=== PATIENT | male | born 1945 | race Caucasian/White ===

== ENCOUNTER 2022-11-29 10:41 | Inpatient (IN) | payer OTHER ==
[~2022-11-29] VITALS: Ht 185.4 cm; Wt 144.7 kg
[2022-11-29 10:46] VITALS: BP 130/96; PULSE 103; RESP 18; TEMP 96.6; O2SAT 97
[2022-11-29] MEDS ORDERED: DEXTROSE 50% 50 ML SYR IVP ONE (11:05)
[2022-11-29] MEDS ORDERED: DEXTROSE 10% 500 ML IV SCH (11:20)
[2022-11-29] MEDS ORDERED: DEXTROSE 10% 1,000 ML IV ONE (11:23)
[2022-11-29 11:40] LABS: HEMATOCRIT 30.4 % (36-52); HEMOGLOBIN 9.6 g/dL (12.0-18.0); MEAN CORPUSCULAR HEMOGLOBIN 24 pg (27-31); MEAN CORPUSCULAR HGB CONC 32 g/dL (33-37); MEAN CORPUSCULAR VOLUME 77.6 fL (80-94); PLATELET COUNT (AUTO) 532 K/uL (140-450); RED BLOOD CELL COUNT(AUTO) 3.92 MIL/uL (4.20-6.10); RED CELL DISTRIBUTION WIDTH 17.1 % (11.6-13.7); WHITE BLOOD COUNT (AUTO) 18.7 K/uL (4.8-10.8)
[2022-11-29 11:53] LABS: INR 1.14 (0.8-1.2); PARTIAL THROMBOPLASTIN TIME 34.5 secs (22-35.6); PROTHROMBIN TIME 11.9 secs (10.8-13.4)
[2022-11-29 12:02] LABS: ALANINE AMINOTRANSFERASE 11 U/L (12-78); ALBUMIN 1.7 g/dL (3.4-5.0); ALKALINE PHOSPHATASE 81 U/L (50-136); ANION GAP 15.4 (8-16); ASPARTATE AMINOTRANSFERASE 21 U/L (15-37); CALCIUM 8.3 mg/dL (8.5-10.1); CARBON DIOXIDE 20.7 mmol/L (21-32); CHLORIDE 99 mmol/L (98-107); CREATININE 2.6 mg/dL (0.6-1.3); GLUCOSE 119 mg/dL (74-106); POTASSIUM 5.1 mmol/L (3.5-5.1); SODIUM SERUM 130 mmol/L (136-145); TOTAL BILIRUBIN 0.1 mg/dL (0.0-1.0); TOTAL PROTEIN, SERUM 6.7 g/dL (6.4-8.2); UREA NITROGEN, BLOOD 39 mg/dL (7-18)
[2022-11-29] MEDS ORDERED: NACL 0.9% 500 ML IV ONE ×2 (12:55→21:50)
[2022-11-29] MEDS ORDERED: cefTRIAXone 1,000 MG VIAL ONE (13:11)
[2022-11-29 13:38] LABS: EOSINOPHILS % (MANUAL) 1 % (0-4); LYMPHOCYTES % (MANUAL) 4 % (20-46); MONOCYTES % (MANUAL) 3 % (5-12)
[2022-11-29 13:47] LABS: BILIRUBIN,URINE NEGATIVE (NEGATIVE); BLOOD, URINE 3+ (NEGATIVE); COLOR,URINE YELLOW (YELLOW); LEUKOCYTE ESTERASE ,URINE 2+ (NEGATIVE); NITRITE, URINE NEGATIVE (NEGATIVE); PROTEIN,URINE 1+ (NEGATIVE); UGLUCOSE NEGATIVE (NEGATIVE); UROBILINOGEN,URINE 0.2 EU/dL (0.2 - 1)
[2022-11-29 13:51] LABS: APPEARANCE,URINE SLIGHTLY HAZY (CLEAR)
[2022-11-29 13:56] LABS: WBC,URINE 60-80 /HPF (0-5)
[2022-11-29 13:57] LABS: BACTERIA,URINE FEW /HPF (None Seen); RBC,URINE 20-50 /HPF (0-5); SQUAMOUS EPITHELIAL CELL,UR 0-3 (FEW) /LPF (0-3 (FEW))
[2022-11-29] MEDS ORDERED: NYST-71 TP (13:58)
[2022-11-29] MEDS ORDERED: APIX5TAB PO (13:58)
[2022-11-29] MEDS ORDERED: INSU100S22 SUBQ (13:58)
[2022-11-29] MEDS ORDERED: METF-352 PO (13:58)
[2022-11-29] MEDS ORDERED: FURO40TA9 PO (13:58)
[2022-11-29] MEDS ORDERED: PANT40EC56 PO (13:58)
[2022-11-29] MEDS ORDERED: SIMV-30 PO (13:58)
[2022-11-29] MEDS ORDERED: METO-748 PO (13:58)
[2022-11-29] MEDS ORDERED: PIOG45TA39 PO (13:58)
[2022-11-29 14:21] LABS: LACTIC ACID 2.1 mmol/L (0.4-2.0)
[2022-11-29] MEDS ORDERED: ONDANSETRON 4 MG/2 ML VIAL IVP PRN (14:30)
[2022-11-29] MEDS ORDERED: MAGNESIUM OXIDE 400 MG TAB PO PRN (14:30)
[2022-11-29] MEDS ORDERED: HYDROcodone/APAP 5/325 MG 1 TAB TAB PO PRN (14:30)
[2022-11-29] MEDS ORDERED: ACETAMINOPHEN 325 MG TAB PO PRN (14:30)
[2022-11-29] MEDS ORDERED: MIDODRINE 5 MG TAB PO SCH (16:00)
[2022-11-29] MEDS: DEXT 5% /NACL 0.9% 1,000 ML IV SCH (16:27)
[2022-11-29 16:30] VITALS: PULSE 104; RESP 16; O2SAT 96
[2022-11-29] MEDS: MIDODRINE 5 MG TAB PO SCH ×2 (16:46→20:29)
[2022-11-29] MEDS: PIPERACILLIN/TAZOBACTAM 2.25 GM in DEXTROSE 5% 50 ML IV SCH (17:11)
[2022-11-29] MEDS ORDERED: ALBUMIN HUMAN 25% 100 ML IV SCH (17:30)
[2022-11-29] MEDS ORDERED: PIPERACILLIN/TAZOBACTAM 2.25 GM in DEXTROSE 5% 50 ML IV SCH (18:00)
[2022-11-29 20:00] VITALS: BP 88/49; PULSE 107; PULSE 111; RESP 18; TEMP 97.3; O2SAT 97
[2022-11-29] MEDS: methylPREDNISolone SS 125 MG/2 ML VIAL IVP SCH (20:29)
[2022-11-30] VITALS (10 sets, daily range): BP systolic 95–120; BP diastolic 50–64; PULSE 76–111; RESP 18–20; TEMP 97.1–98.1; O2SAT 95–99
[2022-11-30] MEDS: PIPERACILLIN/TAZOBACTAM 2.25 GM in DEXTROSE 5% 50 ML IV SCH ×4 (00:13→18:44)
[2022-11-30] MEDS: DEXT 5% /NACL 0.9% 1,000 ML IV SCH ×2 (05:00→07:47)
[2022-11-30] MEDS: methylPREDNISolone SS 125 MG/2 ML VIAL IVP SCH ×3 (05:01→21:28)
[2022-11-30] MEDS: BLOOD GLUCOSE MONITORING 1 DEV DEV FS SCH ×4 (06:58→21:27)
[2022-11-30 07:02] LABS: BASOPHILS % (AUTO) 0.2 % (0.0-2.0); HEMATOCRIT 27.9 % (36-52); HEMOGLOBIN 8.9 g/dL (12.0-18.0); LYMPHOCYTES % (AUTO) 6.3 % (20.5-51.1); MEAN CORPUSCULAR HEMOGLOBIN 24 pg (27-31); MEAN CORPUSCULAR HGB CONC 32 g/dL (33-37); MEAN CORPUSCULAR VOLUME 76.6 fL (80-94); MONOCYTES # (AUTO) 0.2 K/uL (0.8-1.0); NEUTROPHILS # (AUTO) 14.3 K/uL (1.8-7.7); NEUTROPHILS % (AUTO) 92.5 % (42.2-75.2); PLATELET COUNT (AUTO) 525 K/uL (140-450); RED BLOOD CELL COUNT(AUTO) 3.64 MIL/uL (4.20-6.10); RED CELL DISTRIBUTION WIDTH 17.2 % (11.6-13.7); WHITE BLOOD COUNT (AUTO) 15.4 K/uL (4.8-10.8)
[2022-11-30 07:32] LABS: ALANINE AMINOTRANSFERASE 9 U/L (12-78); ALBUMIN 1.9 g/dL (3.4-5.0); ALKALINE PHOSPHATASE 68 U/L (50-136); ANION GAP 15.2 (8-16); ASPARTATE AMINOTRANSFERASE 13 U/L (15-37); CALCIUM 8.4 mg/dL (8.5-10.1); CARBON DIOXIDE 20.5 mmol/L (21-32); CHLORIDE 99 mmol/L (98-107); CREATININE 2.4 mg/dL (0.6-1.3); GLUCOSE 184 mg/dL (74-106); POTASSIUM 5.7 mmol/L (3.5-5.1); SODIUM SERUM 129 mmol/L (136-145); TOTAL BILIRUBIN 0.2 mg/dL (0.0-1.0); TOTAL PROTEIN, SERUM 6.3 g/dL (6.4-8.2); UREA NITROGEN, BLOOD 40 mg/dL (7-18)
[2022-11-30] MEDS: MIDODRINE 5 MG TAB PO SCH ×4 (10:28→21:28)
[2022-11-30] MEDS: PANTOPRAZOLE 40 MG INJ VIAL IVP SCH (10:29)
[2022-11-30] MEDS ORDERED: SODIUM POLYSTYRENE 15 GM/60 ML UDBTL PR ONE (14:20)
[2022-11-30] MEDS ORDERED: FUROSEMIDE 20 MG/2 ML VIAL IVP SCH (14:31)
[2022-11-30] MEDS ORDERED: SODIUM POLYSTYRENE 15 GM/60 ML UDBTL PO SCH (15:20)
[2022-11-30] MEDS: ALBUMIN HUMAN 25% 100 ML IV SCH (15:41)
[2022-11-30] MEDS: INSULIN LISPRO SLIDING SCALE 100 UNITS/ML VIAL SUBQ PRN ×2 (16:04→21:36)
[2022-12-01] VITALS (11 sets, daily range): BP systolic 110–152; BP diastolic 60–79; PULSE 9–107; RESP 17–20; TEMP 96.9–98.2; O2SAT 95–99
[2022-12-01] MEDS: DEXT 5% /NACL 0.9% 1,000 ML IV SCH ×2 (01:06→16:52)
[2022-12-01] MEDS: PIPERACILLIN/TAZOBACTAM 2.25 GM in DEXTROSE 5% 50 ML IV SCH ×5 (01:06→23:54)
[2022-12-01 01:51] LABS: URINE TOTAL PROTEIN 18.9 mg/dL (0-12)
[2022-12-01 01:52] LABS: URINE TPRO CREAT RATIO 0.8 (0-0.20)
[2022-12-01] MEDS: ALBUMIN HUMAN 25% 100 ML IV SCH (04:08)
[2022-12-01] MEDS: methylPREDNISolone SS 125 MG/2 ML VIAL IVP SCH ×2 (05:47→12:26)
[2022-12-01] MEDS: BLOOD GLUCOSE MONITORING 1 DEV DEV FS SCH ×4 (06:31→20:48)
[2022-12-01] MEDS: INSULIN LISPRO SLIDING SCALE 100 UNITS/ML VIAL SUBQ PRN ×4 (06:39→20:39)
[2022-12-01 06:44] LABS: ALANINE AMINOTRANSFERASE 11 U/L (12-78); ALBUMIN 2.4 g/dL (3.4-5.0); ALKALINE PHOSPHATASE 57 U/L (50-136); ANION GAP 16.3 (8-16); ASPARTATE AMINOTRANSFERASE 10 U/L (15-37); CALCIUM 8.7 mg/dL (8.5-10.1); CARBON DIOXIDE 19.7 mmol/L (21-32); CHLORIDE 99 mmol/L (98-107); CREATININE 2.5 mg/dL (0.6-1.3); GLUCOSE 214 mg/dL (74-106); SODIUM SERUM 130 mmol/L (136-145); TOTAL BILIRUBIN 0.2 mg/dL (0.0-1.0); TOTAL PROTEIN, SERUM 6.4 g/dL (6.4-8.2); UREA NITROGEN, BLOOD 41 mg/dL (7-18)
[2022-12-01 07:15] LABS: BASOPHILS % (AUTO) 0.1 % (0.0-2.0); HEMATOCRIT 25.7 % (36-52); HEMOGLOBIN 8.4 g/dL (12.0-18.0); LYMPHOCYTES # (AUTO) 1.2 K/uL (2.0-11.5); MEAN CORPUSCULAR HEMOGLOBIN 25 pg (27-31); MEAN CORPUSCULAR HGB CONC 33 g/dL (33-37); MEAN CORPUSCULAR VOLUME 76.8 fL (80-94); MONOCYTES # (AUTO) 0.6 K/uL (0.8-1.0); MONOCYTES % (AUTO) 3.7 % (1.7-9.3); NEUTROPHILS # (AUTO) 15.7 K/uL (1.8-7.7); NEUTROPHILS % (AUTO) 89.2 % (42.2-75.2); PLATELET COUNT (AUTO) 512 K/uL (140-450); RED BLOOD CELL COUNT(AUTO) 3.35 MIL/uL (4.20-6.10); RED CELL DISTRIBUTION WIDTH 16.9 % (11.6-13.7); WHITE BLOOD COUNT (AUTO) 17.6 K/uL (4.8-10.8)
[2022-12-01] MEDS: PANTOPRAZOLE 40 MG INJ VIAL IVP SCH (08:54)
[2022-12-01] MEDS: MIDODRINE 5 MG TAB PO SCH ×3 (08:54→16:50)
[2022-12-01] MEDS ORDERED: HYDRAGUARD CREAM TP ONE (18:33)
[2022-12-02] VITALS (8 sets, daily range): BP systolic 109–143; BP diastolic 50–64; PULSE 70–117; RESP 18–20; TEMP 96.8–97.9; O2SAT 94–98
[2022-12-02] MEDS: PIPERACILLIN/TAZOBACTAM 2.25 GM in DEXTROSE 5% 50 ML IV SCH ×4 (05:23→23:11)
[2022-12-02] MEDS: INSULIN LISPRO SLIDING SCALE 100 UNITS/ML VIAL SUBQ PRN ×2 (06:19→11:32)
[2022-12-02 06:20] LABS: BASOPHILS % (AUTO) 0.2 % (0.0-2.0); HEMATOCRIT 27.3 % (36-52); HEMOGLOBIN 8.8 g/dL (12.0-18.0); LYMPHOCYTES % (AUTO) 6.1 % (20.5-51.1); MEAN CORPUSCULAR HEMOGLOBIN 25 pg (27-31); MEAN CORPUSCULAR HGB CONC 32 g/dL (33-37); MEAN CORPUSCULAR VOLUME 76.7 fL (80-94); MONOCYTES # (AUTO) 1.2 K/uL (0.8-1.0); MONOCYTES % (AUTO) 7.6 % (1.7-9.3); NEUTROPHILS % (AUTO) 86.1 % (42.2-75.2); PLATELET COUNT (AUTO) 501 K/uL (140-450); RED BLOOD CELL COUNT(AUTO) 3.56 MIL/uL (4.20-6.10); RED CELL DISTRIBUTION WIDTH 17.1 % (11.6-13.7); WHITE BLOOD COUNT (AUTO) 16.3 K/uL (4.8-10.8)
[2022-12-02 06:38] LABS: ALANINE AMINOTRANSFERASE 10 U/L (12-78); ALBUMIN 2.2 g/dL (3.4-5.0); ALKALINE PHOSPHATASE 51 U/L (50-136); ASPARTATE AMINOTRANSFERASE 22 U/L (15-37); CALCIUM 8.4 mg/dL (8.5-10.1); CARBON DIOXIDE 21.5 mmol/L (21-32); CHLORIDE 100 mmol/L (98-107); CREATININE 2.4 mg/dL (0.6-1.3); GLUCOSE 186 mg/dL (74-106); POTASSIUM 4.5 mmol/L (3.5-5.1); SODIUM SERUM 133 mmol/L (136-145); TOTAL BILIRUBIN 0.2 mg/dL (0.0-1.0); TOTAL PROTEIN, SERUM 6.2 g/dL (6.4-8.2); UREA NITROGEN, BLOOD 41 mg/dL (7-18)
[2022-12-02] MEDS: DEXT 5% /NACL 0.9% 1,000 ML IV SCH ×2 (07:00→21:55)
[2022-12-02] MEDS: BLOOD GLUCOSE MONITORING 1 DEV DEV FS SCH ×4 (07:56→20:14)
[2022-12-02] MEDS: MIDODRINE 5 MG TAB PO SCH ×3 (08:14→17:56)
[2022-12-02] MEDS: PANTOPRAZOLE 40 MG INJ VIAL IVP SCH (09:00)
[2022-12-02] MEDS ORDERED: FOAM DRESSING TP PRN (14:10)
[2022-12-02] MEDS: FOAM DRESSING TP SCH (15:00)
[2022-12-02] MEDS ORDERED: SIMETHICONE 40 MG/0.6 ML PO PRN (22:20)
[2022-12-02] MEDS: SIMETHICONE 80 MG TAB.CHEW PO PRN (23:49)
[2022-12-03] MEDS: HYDRAGUARD CREAM TP SCH ×3 (01:14→13:00)
[2022-12-03] MEDS: PIPERACILLIN/TAZOBACTAM 2.25 GM in DEXTROSE 5% 50 ML IV SCH ×4 (05:47→23:54)
[2022-12-03] MEDS: SIMETHICONE 80 MG TAB.CHEW PO PRN (05:50)
[2022-12-03] MEDS: DEXT 5% /NACL 0.9% 1,000 ML IV SCH (05:51)
[2022-12-03 06:11] LABS: ALANINE AMINOTRANSFERASE 18 U/L (12-78); ALKALINE PHOSPHATASE 55 U/L (50-136); ANION GAP 15.1 (8-16); ASPARTATE AMINOTRANSFERASE 31 U/L (15-37); CALCIUM 8.4 mg/dL (8.5-10.1); CHLORIDE 102 mmol/L (98-107); CREATININE 2.1 mg/dL (0.6-1.3); GLUCOSE 126 mg/dL (74-106); POTASSIUM 4.1 mmol/L (3.5-5.1); SODIUM SERUM 132 mmol/L (136-145); TOTAL BILIRUBIN 0.3 mg/dL (0.0-1.0); TOTAL PROTEIN, SERUM 6.1 g/dL (6.4-8.2); UREA NITROGEN, BLOOD 40 mg/dL (7-18)
[2022-12-03] MEDS: BLOOD GLUCOSE MONITORING 1 DEV DEV FS SCH ×4 (06:45→20:28)
[2022-12-03 07:25] LABS: HEMATOCRIT 31.4 % (36-52); HEMOGLOBIN 10.1 g/dL (12.0-18.0); MEAN CORPUSCULAR HEMOGLOBIN 24 pg (27-31); MEAN CORPUSCULAR HGB CONC 32 g/dL (33-37); MEAN CORPUSCULAR VOLUME 76.2 fL (80-94); PLATELET COUNT (AUTO) 469 K/uL (140-450); RED BLOOD CELL COUNT(AUTO) 4.12 MIL/uL (4.20-6.10); RED CELL DISTRIBUTION WIDTH 17.3 % (11.6-13.7); WHITE BLOOD COUNT (AUTO) 16.6 K/uL (4.8-10.8)
[2022-12-03 08:00] VITALS: BP 113/71; PULSE 104; RESP 19; TEMP 97.9; O2SAT 97
[2022-12-03 08:18] LABS: ANISOCYTOSIS 1+; BASOPHILS % (MANUAL) 0 % (0-2); BLASTS, MANUAL % 0 % (0-0); EOSINOPHILS % (MANUAL) 0 % (0-4); LYMPHOCYTES % (MANUAL) 11 % (20-46); METAMYELOCYTES % 0 % (0-0); MONOCYTES % (MANUAL) 13 % (5-12); MYELOCYTES % 0 % (0-0); OTHER CELLS,MANUAL % 0 (0-0); PROMYELOCYTES % 0 % (0-0)
[2022-12-03] MEDS: MIDODRINE 5 MG TAB PO SCH ×3 (08:22→16:13)
[2022-12-03] MEDS: PANTOPRAZOLE 40 MG INJ VIAL IVP SCH (08:57)
[2022-12-03] MEDS: BISMUTH SUBSALICYLATE 15 ML UDBTL PO PRN ×2 (12:24→17:27)
[2022-12-03 12:30] VITALS: BP 120/75; PULSE 98; RESP 18; TEMP 98.4; O2SAT 96
[2022-12-03] MEDS: NON ADHERENT DRESSING TP SCH ×2 (12:37→13:00)
[2022-12-03] MEDS: FOAM DRESSING TP SCH ×2 (12:37→16:00)
[2022-12-03 16:00] VITALS: BP 135/78; PULSE 108; RESP 18; TEMP 97.9; O2SAT 97
[2022-12-03] MEDS: INSULIN LISPRO SLIDING SCALE 100 UNITS/ML VIAL SUBQ PRN ×2 (16:12→20:28)
[2022-12-03 20:00] VITALS: BP 137/79; PULSE 60; RESP 16; RESP 18; TEMP 97.5; O2SAT 95
[2022-12-03 20:02] LABS: PSA FREE REFLE CRITERIA PSA REFLEX NOTE
[2022-12-03] MEDS: ALUMINUM HYD/MAG/SIMETHICONE 30 ML UDC PO PRN (20:51)
[2022-12-03] MEDS: MORPHINE SULFATE 4 MG/ML SYR IVP PRN (22:57)
[2022-12-04] MEDS: HYDRAGUARD CREAM TP SCH ×2 (01:00→13:14)
[2022-12-04] MEDS: MORPHINE SULFATE 4 MG/ML SYR IVP PRN (03:12)
[2022-12-04 04:00] VITALS: BP 134/85; PULSE 76; RESP 18; TEMP 97.8; O2SAT 96
[2022-12-04] MEDS: PIPERACILLIN/TAZOBACTAM 2.25 GM in DEXTROSE 5% 50 ML IV SCH ×3 (05:18→17:47)
[2022-12-04] MEDS: DEXT 5% /NACL 0.9% 1,000 ML IV SCH (05:22)
[2022-12-04 06:50] LABS: EOSINOPHILS % (AUTO) 0.1 % (0.0-4.0); HEMATOCRIT 31.5 % (36-52); LYMPHOCYTES # (AUTO) 1.2 K/uL (2.0-11.5); LYMPHOCYTES % (AUTO) 6.1 % (20.5-51.1); MEAN CORPUSCULAR HEMOGLOBIN 24 pg (27-31); MEAN CORPUSCULAR HGB CONC 32 g/dL (33-37); MEAN CORPUSCULAR VOLUME 76.2 fL (80-94); MONOCYTES # (AUTO) 1.6 K/uL (0.8-1.0); MONOCYTES % (AUTO) 8.5 % (1.7-9.3); NEUTROPHILS # (AUTO) 16.3 K/uL (1.8-7.7); NEUTROPHILS % (AUTO) 85.3 % (42.2-75.2); PLATELET COUNT (AUTO) 448 K/uL (140-450); RED BLOOD CELL COUNT(AUTO) 4.13 MIL/uL (4.20-6.10); RED CELL DISTRIBUTION WIDTH 17.1 % (11.6-13.7); WHITE BLOOD COUNT (AUTO) 19.1 K/uL (4.8-10.8)
[2022-12-04] MEDS: INSULIN LISPRO SLIDING SCALE 100 UNITS/ML VIAL SUBQ PRN ×4 (06:56→21:43)
[2022-12-04] MEDS: BLOOD GLUCOSE MONITORING 1 DEV DEV FS SCH ×4 (06:59→21:37)
[2022-12-04 07:05] LABS: ALANINE AMINOTRANSFERASE 12 U/L (12-78); ALKALINE PHOSPHATASE 58 U/L (50-136); ANION GAP 15.2 (8-16); ASPARTATE AMINOTRANSFERASE 18 U/L (15-37); CARBON DIOXIDE 20.2 mmol/L (21-32); CHLORIDE 102 mmol/L (98-107); GLUCOSE 208 mg/dL (74-106); POTASSIUM 3.4 mmol/L (3.5-5.1); SODIUM SERUM 134 mmol/L (136-145); TOTAL BILIRUBIN 0.3 mg/dL (0.0-1.0); TOTAL PROTEIN, SERUM 6.1 g/dL (6.4-8.2); UREA NITROGEN, BLOOD 36 mg/dL (7-18)
[2022-12-04 08:00] VITALS: PULSE 67; RESP 18; TEMP 97.9; O2SAT 96
[2022-12-04] MEDS: PANTOPRAZOLE 40 MG INJ VIAL IVP SCH (08:07)
[2022-12-04] MEDS: MIDODRINE 5 MG TAB PO SCH ×3 (08:10→17:34)
[2022-12-04] MEDS: POTASSIUM CHLORIDE 10 MEQ TABER PO PRN (08:37)
[2022-12-04 11:01] VITALS: O2SAT 95
[2022-12-04] MEDS: metroNIDAZOLE 500 MG/NS PREMIX 100 ML IV SCH ×2 (13:13→21:27)
[2022-12-04] MEDS: NON ADHERENT DRESSING TP SCH (13:14)
[2022-12-04] MEDS: FOAM DRESSING TP SCH (15:24)
[2022-12-04 16:00] VITALS: BP 132/79; PULSE 94; RESP 19; TEMP 98.3; O2SAT 97
[2022-12-04 20:00] VITALS: PULSE 90; RESP 18; TEMP 97.9; O2SAT 98
[2022-12-05] VITALS: BP 120/65; PULSE 90; RESP 18; TEMP 98.1; O2SAT 98
[2022-12-05] MEDS: PIPERACILLIN/TAZOBACTAM 2.25 GM in DEXTROSE 5% 50 ML IV SCH ×3 (00:07→11:03)
[2022-12-05] MEDS: HYDRAGUARD CREAM TP SCH ×2 (01:00→13:09)
[2022-12-05] MEDS: metroNIDAZOLE 500 MG/NS PREMIX 100 ML IV SCH (04:33)
[2022-12-05] MEDS: BLOOD GLUCOSE MONITORING 1 DEV DEV FS SCH ×4 (06:48→20:17)
[2022-12-05] MEDS: INSULIN LISPRO SLIDING SCALE 100 UNITS/ML VIAL SUBQ PRN ×3 (06:53→20:21)
[2022-12-05 08:00] VITALS: BP 124/68; PULSE 115; RESP 20; TEMP 98.2; O2SAT 98
[2022-12-05 08:18] VITALS: TEMP 97.1
[2022-12-05 08:20] VITALS: PULSE 85; RESP 20; O2SAT 99
[2022-12-05] MEDS: MIDODRINE 5 MG TAB PO SCH ×3 (09:48→17:48)
[2022-12-05] MEDS: PANTOPRAZOLE 40 MG INJ VIAL IVP SCH (09:48)
[2022-12-05] MEDS: BICALUTAMIDE 50 MG TAB PO SCH (09:51)
[2022-12-05] MEDS: ALUMINUM HYD/MAG/SIMETHICONE 30 ML UDC PO PRN (11:02)
[2022-12-05 11:32] LABS: EOSINOPHILS # (AUTO) 0.1 K/uL (0-0.4); EOSINOPHILS % (AUTO) 0.3 % (0.0-4.0); HEMATOCRIT 30.2 % (36-52); HEMOGLOBIN 9.5 g/dL (12.0-18.0); LYMPHOCYTES # (AUTO) 1.2 K/uL (2.0-11.5); LYMPHOCYTES % (AUTO) 6.3 % (20.5-51.1); MEAN CORPUSCULAR HEMOGLOBIN 24 pg (27-31); MEAN CORPUSCULAR HGB CONC 31 g/dL (33-37); MEAN CORPUSCULAR VOLUME 76.9 fL (80-94); MONOCYTES # (AUTO) 1.2 K/uL (0.8-1.0); MONOCYTES % (AUTO) 6.1 % (1.7-9.3); NEUTROPHILS # (AUTO) 16.4 K/uL (1.8-7.7); NEUTROPHILS % (AUTO) 87.3 % (42.2-75.2); PLATELET COUNT (AUTO) 403 K/uL (140-450); RED BLOOD CELL COUNT(AUTO) 3.92 MIL/uL (4.20-6.10); RED CELL DISTRIBUTION WIDTH 17.6 % (11.6-13.7); WHITE BLOOD COUNT (AUTO) 18.8 K/uL (4.8-10.8)
[2022-12-05 11:40] LABS: ANION GAP 15.1 (8-16); CALCIUM 8.6 mg/dL (8.5-10.1); CARBON DIOXIDE 21.6 mmol/L (21-32); CHLORIDE 104 mmol/L (98-107); CREATININE 2.1 mg/dL (0.6-1.3); GLUCOSE 178 mg/dL (74-106); POTASSIUM 3.7 mmol/L (3.5-5.1); SODIUM SERUM 137 mmol/L (136-145); UREA NITROGEN, BLOOD 30 mg/dL (7-18)
[2022-12-05] MEDS: NON ADHERENT DRESSING TP SCH (13:09)
[2022-12-05] MEDS: FOAM DRESSING TP SCH (15:00)
[2022-12-05 16:00] VITALS: BP 122/75; PULSE 115; RESP 20; TEMP 97; O2SAT 98
[2022-12-05] MEDS: PIPERACILLIN/TAZOBACTAM 4.5 GM in DEXTROSE 5% 100 ML IV SCH ×2 (17:48→23:49)
[2022-12-05 20:00] VITALS: BP 119/65; PULSE 101; RESP 18; TEMP 97.6; O2SAT 96
[2022-12-06] MEDS: HYDRAGUARD CREAM TP SCH ×2 (00:42→13:00)
[2022-12-06 04:00] VITALS: BP 125/70; PULSE 84; RESP 18; TEMP 97.4; O2SAT 97
[2022-12-06] MEDS: PIPERACILLIN/TAZOBACTAM 4.5 GM in DEXTROSE 5% 100 ML IV SCH ×4 (05:36→23:59)
[2022-12-06 06:48] LABS: ALANINE AMINOTRANSFERASE 8 U/L (12-78); ALBUMIN 1.9 g/dL (3.4-5.0); ALKALINE PHOSPHATASE 52 U/L (50-136); ANION GAP 12.8 (8-16); ASPARTATE AMINOTRANSFERASE 11 U/L (15-37); CALCIUM 8.4 mg/dL (8.5-10.1); CARBON DIOXIDE 22.6 mmol/L (21-32); CHLORIDE 100 mmol/L (98-107); CREATININE 1.9 mg/dL (0.6-1.3); GLUCOSE 127 mg/dL (74-106); POTASSIUM 3.4 mmol/L (3.5-5.1); SODIUM SERUM 132 mmol/L (136-145); TOTAL BILIRUBIN 0.3 mg/dL (0.0-1.0); TOTAL PROTEIN, SERUM 5.9 g/dL (6.4-8.2); UREA NITROGEN, BLOOD 30 mg/dL (7-18)
[2022-12-06] MEDS: BLOOD GLUCOSE MONITORING 1 DEV DEV FS SCH ×4 (06:50→20:21)
[2022-12-06 07:00] LABS: BASOPHILS % (AUTO) 0.2 % (0.0-2.0); EOSINOPHILS # (AUTO) 0.2 K/uL (0-0.4); EOSINOPHILS % (AUTO) 1.5 % (0.0-4.0); HEMATOCRIT 28.6 % (36-52); HEMOGLOBIN 9.1 g/dL (12.0-18.0); LYMPHOCYTES # (AUTO) 1.9 K/uL (2.0-11.5); LYMPHOCYTES % (AUTO) 11.7 % (20.5-51.1); MEAN CORPUSCULAR HEMOGLOBIN 25 pg (27-31); MEAN CORPUSCULAR HGB CONC 32 g/dL (33-37); MONOCYTES # (AUTO) 1.1 K/uL (0.8-1.0); MONOCYTES % (AUTO) 6.8 % (1.7-9.3); NEUTROPHILS # (AUTO) 12.9 K/uL (1.8-7.7); NEUTROPHILS % (AUTO) 79.8 % (42.2-75.2); PLATELET COUNT (AUTO) 382 K/uL (140-450); RED BLOOD CELL COUNT(AUTO) 3.72 MIL/uL (4.20-6.10); RED CELL DISTRIBUTION WIDTH 17.5 % (11.6-13.7); WHITE BLOOD COUNT (AUTO) 16.1 K/uL (4.8-10.8)
[2022-12-06 07:54] VITALS: O2SAT 96
[2022-12-06 08:00] VITALS: PULSE 107; RESP 20; TEMP 97.8; O2SAT 96
[2022-12-06] MEDS: MIDODRINE 5 MG TAB PO SCH ×3 (09:56→18:17)
[2022-12-06] MEDS: PANTOPRAZOLE 40 MG INJ VIAL IVP SCH (09:56)
[2022-12-06] MEDS: BICALUTAMIDE 50 MG TAB PO SCH (09:57)
[2022-12-06] MEDS ORDERED: POTASSIUM CHLORIDE 10 MEQ TABER PO SCH (10:28)
[2022-12-06] MEDS: NON ADHERENT DRESSING TP SCH (13:00)
[2022-12-06] MEDS: FOAM DRESSING TP SCH (15:00)
[2022-12-06 16:00] VITALS: BP 118/70; PULSE 97; RESP 20; TEMP 98; O2SAT 98
[2022-12-06] MEDS: ALUMINUM HYD/MAG/SIMETHICONE 30 ML UDC PO PRN (19:33)
[2022-12-06 20:00] VITALS: BP 117/72; PULSE 102; RESP 18; RESP 20; TEMP 97.2; O2SAT 97
[2022-12-07] MEDS: HYDRAGUARD CREAM TP SCH ×2 (01:21→13:00)
[2022-12-07 04:00] VITALS: BP 115/69; PULSE 110; RESP 20; TEMP 97.5; O2SAT 98
[2022-12-07] MEDS: PIPERACILLIN/TAZOBACTAM 4.5 GM in DEXTROSE 5% 100 ML IV SCH ×3 (05:19→17:23)
[2022-12-07 06:00] LABS: BASOPHILS # (AUTO) 0.1 K/uL (0.00-0.22); BASOPHILS % (AUTO) 0.7 % (0.0-2.0); EOSINOPHILS # (AUTO) 0.3 K/uL (0-0.4); EOSINOPHILS % (AUTO) 2.2 % (0.0-4.0); HEMATOCRIT 27.6 % (36-52); HEMOGLOBIN 8.9 g/dL (12.0-18.0); LYMPHOCYTES # (AUTO) 1.8 K/uL (2.0-11.5); LYMPHOCYTES % (AUTO) 13.9 % (20.5-51.1); MEAN CORPUSCULAR HEMOGLOBIN 25 pg (27-31); MEAN CORPUSCULAR HGB CONC 32 g/dL (33-37); MEAN CORPUSCULAR VOLUME 76.5 fL (80-94); MONOCYTES % (AUTO) 7.5 % (1.7-9.3); NEUTROPHILS # (AUTO) 10.1 K/uL (1.8-7.7); NEUTROPHILS % (AUTO) 75.7 % (42.2-75.2); PLATELET COUNT (AUTO) 381 K/uL (140-450); RED BLOOD CELL COUNT(AUTO) 3.61 MIL/uL (4.20-6.10); RED CELL DISTRIBUTION WIDTH 17.6 % (11.6-13.7); WHITE BLOOD COUNT (AUTO) 13.3 K/uL (4.8-10.8)
[2022-12-07 06:39] LABS: ALANINE AMINOTRANSFERASE 8 U/L (12-78); ALBUMIN 1.8 g/dL (3.4-5.0); ALKALINE PHOSPHATASE 47 U/L (50-136); ANION GAP 13.1 (8-16); ASPARTATE AMINOTRANSFERASE 11 U/L (15-37); CALCIUM 8.5 mg/dL (8.5-10.1); CARBON DIOXIDE 20.4 mmol/L (21-32); CHLORIDE 100 mmol/L (98-107); CREATININE 1.8 mg/dL (0.6-1.3); GLUCOSE 130 mg/dL (74-106); POTASSIUM 3.5 mmol/L (3.5-5.1); SODIUM SERUM 130 mmol/L (136-145); TOTAL BILIRUBIN 0.3 mg/dL (0.0-1.0); TOTAL PROTEIN, SERUM 5.7 g/dL (6.4-8.2); UREA NITROGEN, BLOOD 27 mg/dL (7-18)
[2022-12-07] MEDS: BLOOD GLUCOSE MONITORING 1 DEV DEV FS SCH ×4 (06:41→20:34)
[2022-12-07 08:00] VITALS: PULSE 92; RESP 17; TEMP 97.2; O2SAT 97
[2022-12-07] MEDS ORDERED: PRO5 PO (08:28)
[2022-12-07] MEDS ORDERED: LEVO750T75 PO (08:28)
[2022-12-07] MEDS: MIDODRINE 5 MG TAB PO SCH ×3 (09:08→17:20)
[2022-12-07] MEDS: PANTOPRAZOLE 40 MG INJ VIAL IVP SCH (09:09)
[2022-12-07] MEDS: BICALUTAMIDE 50 MG TAB PO SCH (09:10)
[2022-12-07] MEDS ORDERED: POTASSIUM CHLORIDE 10 MEQ TABER PO SCH (11:37)
[2022-12-07] MEDS ORDERED: FUROSEMIDE 20 MG/2 ML VIAL IVP SCH (11:38)
[2022-12-07] MEDS: NON ADHERENT DRESSING TP SCH (13:00)
[2022-12-07] MEDS: FOAM DRESSING TP SCH (15:47)
[2022-12-07 16:00] VITALS: BP 134/68; PULSE 97; RESP 18; TEMP 97.4; O2SAT 97
[2022-12-07 19:41] VITALS: O2SAT 96
[2022-12-07 20:00] VITALS: BP 117/63; PULSE 95; PULSE 97; RESP 18; RESP 20; TEMP 97.7; TEMP 98; O2SAT 96; O2SAT 98
[2022-12-08] MEDS: PIPERACILLIN/TAZOBACTAM 4.5 GM in DEXTROSE 5% 100 ML IV SCH ×4 (00:38→17:37)
[2022-12-08] MEDS: HYDRAGUARD CREAM TP SCH ×2 (01:03→13:25)
[2022-12-08 04:00] VITALS: BP 130/80; PULSE 99; RESP 18; TEMP 96.6; O2SAT 96
[2022-12-08 06:38] LABS: BASOPHILS % (AUTO) 0.4 % (0.0-2.0); EOSINOPHILS # (AUTO) 0.3 K/uL (0-0.4); EOSINOPHILS % (AUTO) 2.4 % (0.0-4.0); HEMATOCRIT 28.4 % (36-52); HEMOGLOBIN 9.2 g/dL (12.0-18.0); LYMPHOCYTES # (AUTO) 1.7 K/uL (2.0-11.5); LYMPHOCYTES % (AUTO) 14.8 % (20.5-51.1); MEAN CORPUSCULAR HEMOGLOBIN 25 pg (27-31); MEAN CORPUSCULAR HGB CONC 32 g/dL (33-37); MEAN CORPUSCULAR VOLUME 76.7 fL (80-94); MONOCYTES % (AUTO) 8.5 % (1.7-9.3); NEUTROPHILS # (AUTO) 8.6 K/uL (1.8-7.7); NEUTROPHILS % (AUTO) 73.9 % (42.2-75.2); PLATELET COUNT (AUTO) 382 K/uL (140-450); RED BLOOD CELL COUNT(AUTO) 3.71 MIL/uL (4.20-6.10); RED CELL DISTRIBUTION WIDTH 17.9 % (11.6-13.7); WHITE BLOOD COUNT (AUTO) 11.6 K/uL (4.8-10.8)
[2022-12-08] MEDS: BLOOD GLUCOSE MONITORING 1 DEV DEV FS SCH ×4 (06:41→21:08)
[2022-12-08 07:16] LABS: ALANINE AMINOTRANSFERASE 9 U/L (12-78); ALBUMIN 1.8 g/dL (3.4-5.0); ALKALINE PHOSPHATASE 48 U/L (50-136); ANION GAP 12.7 (8-16); ASPARTATE AMINOTRANSFERASE 12 U/L (15-37); CALCIUM 8.6 mg/dL (8.5-10.1); CARBON DIOXIDE 22.6 mmol/L (21-32); CHLORIDE 98 mmol/L (98-107); CREATININE 1.8 mg/dL (0.6-1.3); GLUCOSE 134 mg/dL (74-106); POTASSIUM 3.3 mmol/L (3.5-5.1); SODIUM SERUM 130 mmol/L (136-145); TOTAL BILIRUBIN 0.4 mg/dL (0.0-1.0); TOTAL PROTEIN, SERUM 5.7 g/dL (6.4-8.2); UREA NITROGEN, BLOOD 25 mg/dL (7-18)
[2022-12-08 08:00] VITALS: BP 121/80; PULSE 96; RESP 18; TEMP 96.7; O2SAT 99
[2022-12-08] MEDS: BICALUTAMIDE 50 MG TAB PO SCH (08:55)
[2022-12-08] MEDS: POTASSIUM CHLORIDE 10 MEQ TABER PO PRN (08:56)
[2022-12-08] MEDS: PANTOPRAZOLE 40 MG INJ VIAL IVP SCH (08:57)
[2022-12-08] MEDS: MIDODRINE 5 MG TAB PO SCH ×3 (08:57→17:00)
[2022-12-08] MEDS ORDERED: POTASSIUM CHLORIDE 10 MEQ TABER PO SCH (11:06)
[2022-12-08] MEDS ORDERED: FUROSEMIDE 20 MG/2 ML VIAL IVP SCH (12:57)
[2022-12-08] MEDS: NON ADHERENT DRESSING TP SCH (13:26)
[2022-12-08] MEDS: FOAM DRESSING TP SCH (15:05)
[2022-12-08 16:00] VITALS: BP 136/73; PULSE 98; RESP 18; TEMP 97; O2SAT 98
[2022-12-08 19:34] VITALS: O2SAT 96
[2022-12-08 20:00] VITALS: BP 126/79; PULSE 94; RESP 18; TEMP 97.1; O2SAT 98
[2022-12-08] MEDS: INSULIN LISPRO SLIDING SCALE 100 UNITS/ML VIAL SUBQ PRN (21:14)
[2022-12-09] MEDS: PIPERACILLIN/TAZOBACTAM 4.5 GM in DEXTROSE 5% 100 ML IV SCH ×4 (01:04→18:00)
[2022-12-09] MEDS: HYDRAGUARD CREAM TP SCH ×2 (01:05→13:43)
[2022-12-09 04:00] VITALS: BP 133/76; PULSE 85; RESP 18; TEMP 97.4; O2SAT 98
[2022-12-09 06:25] LABS: BASOPHILS # (AUTO) 0.1 K/uL (0.00-0.22); BASOPHILS % (AUTO) 0.6 % (0.0-2.0); EOSINOPHILS # (AUTO) 0.2 K/uL (0-0.4); EOSINOPHILS % (AUTO) 1.7 % (0.0-4.0); HEMATOCRIT 28.5 % (36-52); HEMOGLOBIN 9.2 g/dL (12.0-18.0); LYMPHOCYTES # (AUTO) 2.2 K/uL (2.0-11.5); LYMPHOCYTES % (AUTO) 17.6 % (20.5-51.1); MEAN CORPUSCULAR HEMOGLOBIN 25 pg (27-31); MEAN CORPUSCULAR HGB CONC 32 g/dL (33-37); MEAN CORPUSCULAR VOLUME 76.1 fL (80-94); MONOCYTES # (AUTO) 1.1 K/uL (0.8-1.0); NEUTROPHILS # (AUTO) 8.9 K/uL (1.8-7.7); NEUTROPHILS % (AUTO) 71.1 % (42.2-75.2); PLATELET COUNT (AUTO) 390 K/uL (140-450); RED BLOOD CELL COUNT(AUTO) 3.75 MIL/uL (4.20-6.10); RED CELL DISTRIBUTION WIDTH 18.1 % (11.6-13.7); WHITE BLOOD COUNT (AUTO) 12.5 K/uL (4.8-10.8)
[2022-12-09] MEDS: BLOOD GLUCOSE MONITORING 1 DEV DEV FS SCH ×3 (06:42→16:30)
[2022-12-09 06:43] LABS: ALANINE AMINOTRANSFERASE 10 U/L (12-78); ALBUMIN 1.9 g/dL (3.4-5.0); ALKALINE PHOSPHATASE 50 U/L (50-136); ANION GAP 14.6 (8-16); ASPARTATE AMINOTRANSFERASE 14 U/L (15-37); CALCIUM 8.4 mg/dL (8.5-10.1); CHLORIDE 97 mmol/L (98-107); CREATININE 1.9 mg/dL (0.6-1.3); GLUCOSE 130 mg/dL (74-106); POTASSIUM 3.6 mmol/L (3.5-5.1); SODIUM SERUM 130 mmol/L (136-145); TOTAL BILIRUBIN 0.3 mg/dL (0.0-1.0); UREA NITROGEN, BLOOD 25 mg/dL (7-18)
[2022-12-09 08:00] VITALS: PULSE 98; RESP 18; TEMP 98; O2SAT 97
[2022-12-09] MEDS: BICALUTAMIDE 50 MG TAB PO SCH (09:00)
[2022-12-09] MEDS: MIDODRINE 5 MG TAB PO SCH ×3 (09:57→17:00)
[2022-12-09] MEDS: PANTOPRAZOLE 40 MG INJ VIAL IVP SCH (09:57)
[2022-12-09] MEDS: NON ADHERENT DRESSING TP SCH (13:42)
[2022-12-09] MEDS: FOAM DRESSING TP SCH (15:37)
[2022-12-09 18:31] VITALS: BP 133/76; PULSE 98; RESP 18; TEMP 98
== END 2022-12-09 19:20 | DRG 871 ==
LOC: MED 10:41 → MTU 14:32
PROVIDERS: ADMIT Student in an Organized Health Care Education/Training Program; ATTEND Student in an Organized Health Care Education/Training Program
DX: A41.9 Sepsis, unspecified organism (principal); J96.01 Acute respiratory failure with hypoxia; N17.9 Acute kidney failure, unspecified; Z68.41 Body mass index [BMI] 40.0-44.9, adult; N13.6 Pyonephrosis; D84.9 Immunodeficiency, unspecified; R65.20 Severe sepsis without septic shock; E66.9 Obesity, unspecified; E11.649 Type 2 diabetes mellitus with hypoglycemia without coma; E87.5 Hyperkalemia; E88.09 Other disorders of plasma-protein metabolism, not elsewhere classified; E78.5 Hyperlipidemia, unspecified; R00.0 Tachycardia, unspecified; I10 Essential (primary) hypertension; R59.1 Generalized enlarged lymph nodes; I48.91 Unspecified atrial fibrillation; N40.0 Benign prostatic hyperplasia without lower urinary tract symptoms; E78.00 Pure hypercholesterolemia, unspecified; Z79.01 Long term (current) use of anticoagulants; Z74.01 Bed confinement status; Z87.440 Personal history of urinary (tract) infections; Z79.4 Long term (current) use of insulin; Z79.899 Other long term (current) drug therapy
CPT/HCPCS: 36415; 71045; 74018; 76770; 80048; 80053; 81001; 82570; 82948; 83605; 83880; 84154; 84300; 84484; 85025; 85610; 85730; 87040; 87086; 93005; 93970; 96365; 96375; 97110; 99285; C9113; J0696; J1644; J1815; J1940; J2270; J2405; J2543; J2930; J3490; J7060; P9046; Q0092